=== PATIENT | male | born 1955 | race Caucasian/White ===

== ENCOUNTER 2018-06-19 10:27 | Emergency (ER) | payer SELFPAY ==
--- NOTE | 2018-06-19 10:30 | ED Physician Documentation ---
General Adult - HISTORIAN Historian: patient - HPI Stated Complaint: fall post n/v episode head injury and now neck pain Chief Complaint: Neck Injury Onset: other (initally he states he fell yesterday and after discussion would like to change that to Sat AM ) Timing: still present Severity: moderate Further Comments: yes (He states yesterday he did fall and hit the front of his head after a few episdoes of n/v after what he believes is bad eggs. He states he was dizzy after "dry heaving" and fell and hit the front of his head on the toliet he does not feel he lost conciousness. He does have a headache and then severe neck pain on the left side. He states he has tried things at home but cannot recall those things and nothing is helping the pain. He states after discussion he fell on sat am not yesterday. he is aware of time date and person at this time. He is in his robe . He states he didnt feel like getting dressed. he denies any weakness . He has no loss of control of bowel or bladder.) Last known Well Code/Unknown Code: Unknown - ROS CONST: recent illness (nausea and vomiting he feels is from a batch of bad eggs ) EYES/ENT: denies: problems with vision CVS/RESP: denies: chest pain, shortness of breath GI/: vomiting, nausea. denies: abdominal pain, problems urinating, diarrhea MS/SKIN/LYMPH: none NEURO/PSYCH: headache, fainting, dizziness. denies: difficulty with speech - PAST HX Past History: none Surgeries/Procedures: other (knee and sinus surgery ) Immunizations: UTD Allergies/Adverse Reactions: Allergies Allergy/AdvReac Type Severity Reaction Status Date / Time No Known Allergies Allergy Unverified 06/19/18 10:37 Home Medications: Ambulatory Orders Medication Instructions Recorded NK [NK] 06/19/18 - SOCIAL HX Smoking History: non-smoker Alcohol Use: none Drug Use: none - FAMILY HX Family History: No - REVIEWED ASSESSMENTS Nursing Assessment Reviewed: Yes Vitals Reviewed: Yes Progress - Progress Progress: 1229: results discussed and plan . He is agreeable DG ED Results Lab/Radiology - Radiology Radiology Impressions: Examination: CT head without contrast History: PT STATES FELL X2 DAYS AGO,HAVING HEADACHES (Hx) Comparison exam: None available Technique: Noncontrast head CT protocol. Findings: Ventricles and sulci are mildly prominent. Cerebrocerebellar parenchyma demonstrates periventricular low attenuation consistent with small vessel disease. Right basal ganglia lacunar infarct. No evidence for parenchymal hemorrhage. No evidence for mass or mass effect. No midline shift. No extra axial fluid collections. Partial visualization of the paranasal sinuses demonstrates scattered mucous thickening. Mastoid air cells, orbits, skull and scalp without gross irregularity. Impression: Age related changes and right basal ganglia old lacunar infarct. No acute parenchymal process. No hemorrhage. Electronically signed on Jun 19, 2018 12:11:16 PM CDT by: Hernando Enriquez Examination: CT cervical spine History: PT STATES FELL X2 DAYS AGO, IS HAVING NECK PAIN MOSTLY ON THE RIGHT SIDE WITH LIMITED RANGE OF MOTION (Hx) Comparison exams: None provided Technique: CT cervical spine axial imaging with sagittal and coronal reconstruction Findings: Sagittal reconstruction demonstrates normal height and alignment the cervical vertebral bodies. No anterior compression deformity. Scattered osteophytes associated with disc space narrowing. Coronal reconstruction does not demonstrate locked or perched facets. Atlantoaxial degenerative changes. Lung apical emphysematous changes. Posterior soft tissue calcification. Axial imaging obtained from the skull base through T1 Lamina and pedicles are intact. No ossific density within the central canal. Multilevel facet degenerative changes. Scattered central canal and neuroforaminal narrowing. No prevertebral soft tissue abnormality. Impression: Multilevel degenerative changes. No evidence for vertebral body compression fracture. Electronically signed on Jun 19, 2018 12:24:52 PM CDT by: Hernando Enriquez General Adult Physical Exam - PHYSICAL EXAM GENERAL APPEARANCE: no distress EENT: eye inspection normal, ENT inspection normal, RADHA NECK: normal inspection, other (muscle spasm noted on the left side of the neck . Pain with palpation on left side of neck. FROM ) RESPIRATORY: no resp distress, chest non-tender, breath sounds normal CVS: reg rate & rhythm, heart sounds normal, equal pulses, no murmur ABDOMEN: soft, normal bowel sounds, no distension, non-tender SKIN: warm/dry, normal color EXTREMITIES: non-tender, normal range of motion, no evidence of injury, no edema NEURO: oriented X3, CN's nml as tested, motor nml, sensation nml, cognition normal, other (flat affect ) Discharge Clincal Impression: Muscle spasm Referrals: Primary Doctor,No [Primary Care Provider] - 2 Days Comments: 1. Baclofen 10 mg take 1 by mouth every 8 hours as needed for pain 2. Medrol Dose pack as directed start 06.20.2018 3. Heat or ice for comfort 4. Neck stretches 5. Increase fluids 6. No drugs or alcohol 7. See PCP In 2-4 days if no improvement 8. Change positions slowly 9. Return to ER for any concerns Condition: Stable Disposition: 01 HOME, SELF-CARE Decision to Admit: NO Date of Decison to Admit: 06/19/18 Decision Time: 12:33
[2018-06-19] MEDS ORDERED: 0.9 % SODIUM CHLORIDE 1,000 ML IV ONE (10:40)
[2018-06-19 11:25] LABS: MEAN CORPUSCULAR HEMOGLOBIN 32.3 pg (28.0-34.0); MEAN CORPUSCULAR VOLUME 97.7 fl (80.0-100.0)
[2018-06-19 11:27] LABS: eGFR (African) > 60; eGFR (Non-African) > 60
[2018-06-19 12:02] LABS: SEGMENTED NEUTROPHILS % 78 % (39-79)
[2018-06-19 12:03] LABS: MONOCYTES % 14 % (0-11)
[2018-06-19] MEDS ORDERED: ORPHENADRINE CITRATE 60 MG/2ML IM ONE (12:27)
[2018-06-19] MEDS ORDERED: methylPREDNISolone ACETATE 80 MG/ML VIAL IM ONE (12:28)
[2018-06-19 13:00] VITALS: BP 136/74
[2018-06-19 14:09] LABS: APPEARANCE,URINE CLEAR (CLEAR); CANNABINOIDS NON NEGATIVE ng/mL (< 50); COLOR,URINE YELLOW (YELLOW); METHYLENEDIOXYMETHAMPHETAMINE NEGATIVE ng/mL (<500); OCCULT BLOOD,URINE 2+ (NEGATIVE); UROBILINOGEN URINE 0.2 Eu (0.2-1.0)
--- NOTE | 2018-06-19 17:19 | Diagnostic Imaging Report ---
[facility] [address] Count Includes [facility] [address] [address] Report Submission Date: Jun 19, 2018 12:24:52 PM CDT Patient Study Name: NNAMDI MARROQUIN Date: Jun 19, 2018 11:14:19 AM CDT Modality Type: CT\SR Gender: M Description: CT C-SPINE W/O CONTRAS : 59 Institution: [facility] Physician: ROSINA WEISS - GAVINO Examination: CT cervical spine History: PT STATES FELL X2 DAYS AGO, IS HAVING NECK PAIN MOSTLY ON THE RIGHT SIDE WITH LIMITED RANGE OF MOTION (Hx) Comparison exams: None provided Technique: CT cervical spine axial imaging with sagittal and coronal reconstruction Findings: Sagittal reconstruction demonstrates normal height and alignment the cervical vertebral bodies. No anterior compression deformity. Scattered osteophytes associated with disc space narrowing. Coronal reconstruction does not demonstrate locked or perched facets. Atlantoaxial degenerative changes. Lung apical emphysematous changes. Posterior soft tissue calcification. Axial imaging obtained from the skull base through T1 Lamina and pedicles are intact. No ossific density within the central canal. Multilevel facet degenerative changes. Scattered central canal and neuroforaminal narrowing. No prevertebral soft tissue abnormality. Impression: Multilevel degenerative changes. No evidence for vertebral body compression fracture. Electronically signed on Jun 19, 2018 12:24:52 PM CDT by: Hernando ALAS
--- NOTE | 2018-06-19 17:20 | Diagnostic Imaging Report ---
[facility] [address] Formerly [facility], [facility] [address] [place], [place]. [address] Report Submission Date: Jun 19, 2018 12:11:16 PM CDT Patient Study Name: NNAMDI MARROQUIN Date: Jun 19, 2018 11:11:07 AM CDT Modality Type: CT\SR Gender: M Description: CT BRAIN W/O CONTRAST : 59 Institution: [facility] Physician: ROSINA WEISS Examination: CT head without contrast History: PT STATES FELL X2 DAYS AGO,HAVING HEADACHES (Hx) Comparison exam: None available Technique: Noncontrast head CT protocol. Findings: Ventricles and sulci are mildly prominent. Cerebrocerebellar parenchyma demonstrates periventricular low attenuation consistent with small vessel disease. Right basal ganglia lacunar infarct. No evidence for parenchymal hemorrhage. No evidence for mass or mass effect. No midline shift. No extra axial fluid collections. Partial visualization of the paranasal sinuses demonstrates scattered mucous thickening. Mastoid air cells, orbits, skull and scalp without gross irregularity. Impression: Age related changes and right basal ganglia old lacunar infarct. No acute parenchymal process. No hemorrhage. Electronically signed on Jun 19, 2018 12:11:16 PM CDT by: Hernando ALAS
[2018-06-21 19:02] LABS: CANNABINOIDS CONFIRMATION >150 ng/mL (<15)
== END 2018-06-19 12:56 | disposition home or self-care (01) ==
LOC: ED 10:27
DX: M62.838 Other muscle spasm (principal); W19.XXXA Unspecified fall, initial encounter; Y92.9 Unspecified place or not applicable; Y93.9 Activity, unspecified; Y99.9 Unspecified external cause status
CPT/HCPCS: 70450; 72125; 80053; 80320; 80377; 81002; 85025; 85610; 93005; J1040; J2360; J7030; 96365; 96366; 96372; 99284; G0480; G0481; S1016